=== PATIENT | male | born 1995 | race African-American/Black ===

== ENCOUNTER 2021-10-31 07:59 | Emergency (ER) | payer SELFPAY ==
[~2021-10-31] VITALS: Ht 165.1 cm; Wt 75.7 kg
[2021-10-31 08:19] VITALS: BP 130/80
[2021-10-31] MEDS ORDERED: OLANZAPINE 5 MG TABLET ONE (08:24)
[2021-10-31] MEDS ORDERED: OLANZAPINE ZYDIS 5 MG TAB.RAPDIS PO ONE (08:30)
--- NOTE | 2021-10-31 08:32 | NUR ---
Patient discharged in custody in stable condition. [facility], with [employer] officers Nik[place] [id number] and Dayne [id number].
== END 2021-10-31 08:38 ==
LOC: ER 08:11
DX: Z00.00 Encounter for general adult medical examination without abnormal findings (principal)